=== PATIENT | female | born 1985 | race Caucasian/White ===

== ENCOUNTER 2023-04-10 10:36 | Emergency (ER) | payer BC ==
[~2023-04-10] VITALS: Ht 182.9 cm; Wt 127.0 kg
[2023-04-10 10:53] VITALS: BP 155/95; PULSE 104; RESP 16; O2SAT 99
[2023-04-10] MEDS ORDERED: SOLU-MEDROL 125MG VIAL IVP ONE (12:00)
[2023-04-10] MEDS ORDERED: 0.9%NACL 1000ML 1,000 ML IV ONE (12:00)
[2023-04-10] MEDS ORDERED: FAMOTIDINE 20MG VIAL IV ONE (12:00)
[2023-04-10 13:01] LABS: BASOPHILS # (AUTO) 0.03 K/uL (0.00-0.20); BASOPHILS % (AUTO) 0.5 % (0.0-5.0); EOSINOPHILS # (AUTO) 0.34 K/uL (0.00-0.70); EOSINOPHILS % (AUTO) 5.2 % (0.0-8.0); HEMATOCRIT 40.1 % (36-48); IMMATURE GRANULOCYTE ABSOLUTE 0.03 K/uL (0-1); LYMPHOCYTES # (AUTO) 1.3 K/uL (1.0-4.8); LYMPHOCYTES % (AUTO) 19.7 % (21.0-51.0); MEAN CORPUSCULAR HGB CONC 32.9 g/dL (32.0-36.0); MEAN CORPUSCULAR VOLUME 85.1 fL (79-99); MONOCYTES # (AUTO) 0.5 K/uL (0.1-1.0); MONOCYTES % (AUTO) 6.8 % (3.0-13.0); NEUTROPHILS # (AUTO) 4.4 K/uL (1.8-7.7); NEUTROPHILS % (AUTO) 67.3 % (40.0-77.0); PLATELET COUNT (AUTO) 205 K/uL (130-400); RED BLOOD CELL COUNT(AUTO) 4.71 MIL/uL (4.00-5.50); RED CELL DISTRIBUTION WIDTH 14.1 % (11.0-15.5); WHITE BLOOD COUNT (AUTO) 6.6 K/uL (4.8-10.8)
[2023-04-10 13:16] LABS: ALBUMIN 3.8 g/dL (3.5-5.0); BILIRUBIN,TOTAL 0.3 mg/dL (0.2-1.0); POTASSIUM 4.3 mmol/L (3.5-5.1)
[2023-04-10] MEDS ORDERED: CEPH500B PO (14:18)
[2023-04-10] MEDS ORDERED: FAMO-136 PO (14:18)
[2023-04-10] MEDS ORDERED: FLUC150T48 PO (14:27)
== END 2023-04-10 14:30 | disposition home or self-care (01) ==
LOC: EDH 10:36
DX: R21 Rash and other nonspecific skin eruption (principal); K21.9 Gastro-esophageal reflux disease without esophagitis
CPT/HCPCS: 99284; 96374; 96361; 96375; 80053; 85025; 36415; J3490; J7030; J2930